=== PATIENT | female | born 1955 | race Caucasian/White ===

== ENCOUNTER 2024-12-06 11:15 | Emergency (ER) | payer MEDICARE, SELFPAY ==
[2024-12-06 11:29] VITALS: BP 170/75; PULSE 65; RESP 16; TEMP 36.8; O2SAT 99; BMI 27.3
--- NOTE | 2024-12-06 11:34 | DI.RAD.S_ITS ---
PROCEDURE: XR KNEE RT 3V INDICATIONS: pain x 5 weeks, swelling TECHNIQUE: 3 views of the knee were acquired. COMPARISON: None. FINDINGS: Bones: No fractures or dislocations. No suspicious bony lesions. Tricompartment degenerative change with [id number] appearance at the patellofemoral joint. There are lateral greater than medial osteophytes. Soft tissues: No joint effusion. No suspicious soft tissue calcifications. IMPRESSION: No acute bony abnormality or significant effusion. Degenerative arthritis, severe in the patellofemoral compartment. Dictated by: Cory Deleon M.D. on 12/06/2024 at 12:17 Approved by: Cory Deleon M.D. on 12/06/2024 at 12:18
--- NOTE | 2024-12-06 12:11 | ED_ITS ---
HPI - Extremity Injury (Lower) <AXEL Pritchett - Last Filed: 12/06/24 12:31> General Chief Complaint: Extremity Injury, Lower Stated Complaint: Right knee pain Time Seen by Provider: 12/06/24 12:03 Source: patient Mode of arrival: Ambulatory History of Present Illness HPI Narrative: 68-year-old female, never smoker, presents to the emergency department with right knee pain x5 weeks. Patient states that she was kneeling on a cushion when she felt a pop in her knee and has had swelling and pain waxing and waning ever since. Home treatment has included RICE. 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 Patient is concerned because they right calf and ankle are swollen and seems to be getting worse. No history of blood clots, cancer, recent prolonged sitting, etc.. Related Data Allergies Allergy/AdvReac Type Severity Reaction Status Date / Time No Known Drug Allergies Allergy Verified 12/06/24 11:29 Review of Systems <AXEL Pritchett - Last Filed: 12/06/24 12:31> Review of Systems Narrative: Narrative: See HPI. GENERAL: Denies chills, fatigue, fever, sweats. HEENT: Denies sinus pain, ear pain, sore throat, difficulty swallowing, dizziness. RESPIRATORY: Denies dyspnea, cough, wheezing, sputum. CARDIOVASCULAR: Denies chest pain, palpitations, edema. GASTROINTESTINAL: Denies nausea, vomiting, abdominal pain, diarrhea, consti pation. : Denies dysuria, frequency, incontinence, hematuria, urinary retention, flank pain. MSK: Denies weakness or bony pain. Endorses right knee pain and swelling. SKIN: Denies rash, skin lesions, or pruritis. NEUROLOGIC: Denies weakness, dizziness, headache, numbness, confusion. Patient History <AXEL Pritchett - Last Filed: 12/06/24 12:31> Social History Smoking Status: Never smoker Smoking Status: Never smoker Exam <AXEL Pritchett - Last Filed: 12/06/24 12:31> Narrative Exam Narrative: Exam Narrative: GENERAL: This is a well-nourished, well-developed patient, in no acute distress. HEAD: Atraumatic. Normocephalic. EYES: Pupils equal round and reactive. Extraocular motions intact. No scleral icterus, injection or drainage. ENT: Nose without bleeding, purulent drainage. Airway patent. NECK: Trachea midline. No JVD or lymphadenopathy. Nontender. RESPIRATORY: Normal respiratory rate and effort. MSK: Moves all extremities. Normal range of motion, no clubbing or edema. Neurovascularly intact. NEURO: A&O x 3. SKIN: Warm, dry, no rashes or lesions noted. KNEE: There is no swelling, bruising or asymmetry. There is no tenderness to general palpation. There is no joint line tenderness. There is no patellar tenderness. There is no popliteal fullness. Patella tracks normally. Range of motion is limited due to pain. Worsens with extreme flexion. Resistive strength for flexion and extension is intact. Gait is antalgic. The contralateral knee exam is unremarkable. Measurements of bilateral ankle and calves are equal. Initial Vital Signs Initial Vital Signs: Vital Signs Temperature 98.3 F 12/06/24 11:29 Pulse Rate 65 12/06/24 11:29 Respiratory Rate 16 12/06/24 11:29 Blood Pressure 170/75 H 12/06/24 11:29 Pulse Oximetry 99 12/06/24 11:29 Oxygen Delivery Method Room Air 12/06/24 11:29 Reviewed <Gideon Singh MD - Last Filed: 12/08/24 08:30> Initial Vital Signs Initial Vital Signs: Vital Signs Temperature 98.3 F 12/06/24 11:29 Pulse Rate 65 12/06/24 11:29 Respiratory Rate 16 12/06/24 11:29 Blood Pressure 170/75 H 12/06/24 11:29 Pulse Oximetry 99 12/06/24 11:29 Oxygen Delivery Method Room Air 12/06/24 11:29 Course <AXEL Pritchett - Last Filed: 12/06/24 12:31> Orders Ordered: ED Orders 12/06/24 11:34 XR knee RT 3V Stat Vital Signs Vital signs: Vital Signs - 8 hr 12/06/24 11:29 Temperature 98.3 F Pulse Rate 65 Respiratory Rate 16 Blood Pressure 170/75 H Pulse Oximetry 99 Oxygen Delivery Method Room Air <Gideon Singh MD - Last Filed: 12/08/24 08:30> Orders Ordered: ED Orders 12/06/24 11:34 XR knee RT 3V Stat Vital Signs Vital signs: Vital Signs - 8 hr 12/06/24 11:29 Temperature 98.3 F Pulse Rate 65 Respiratory Rate 16 Blood Pressure 170/75 H Pulse Oximetry 99 Oxygen Delivery Method Room Air MDM - Extremity Injury (Lower) <Chris AXEL Nieto - Last Filed: 12/06/24 12:31> Differential Diagnosis Differential diagnosis: Likely other (Knee sprain, Gayle's cyst) Imaging Data Extremity x-ray #1: Radiologist's Impression: [address] [address] XRay Report Signed Patient: Aliya Samson MR#: [id number] : 1955 Acct:[id number] Age/Sex: 68 / F Date of Service: 12/06/24 Loc: ED Accession Number: [id number] Procedure: XR knee RT 3V Ordering Provider: Gideon Singh MD PROCEDURE: XR KNEE RT 3V INDICATIONS: pain x 5 weeks, swelling TECHNIQUE: 3 views of the knee were acquired. COMPARISON: None. FINDINGS: Bones: No fractures or dislocations. No suspicious bony lesions. Tricompartment degenerative change with [id number] appearance at the patellofemoral joint. There are lateral greater than medial osteophytes. Soft tissues: No joint effusion. No suspicious soft tissue calcifications. IMPRESSION: No acute bony abnormality or significant effusion. Degenerative arthritis, severe in the patellofemoral compartment. Dictated by: Cory Deleon M.D. on 12/06/2024 at 12:17 Approved by: Cory Deleon M.D. on 12/06/2024 at 12:18 [facility] Narrative Medical decision making narrative: 68-year-old female with right knee pain. Assessment was encouraging and clinical findings did not reveal any red flag symptoms. X-ray results showed degenerative arthritis with no evidence of fracture or effusion. Wells score for DVT was -2. Will recommend continued supportive care to include Rest (modified activity), along with ice, compression wrap/splint-immobilize as directed and elevation above heart. Tylenol or Ibuprofen for discomfort. Instructed patient to follow up with family doctor if symptoms persist or worsen for possible MRI. Patient verbalized understanding and was agreeable to course of action. Discharge Plan Departure Patient Disposition: Home Clinical Impression: Acute knee pain Qualifiers: Laterality: right Qualified Code(s): M25.561 - Pain in right knee Instructions: DI for Knee Pain Activity Restrictions/Additional Instructions: *You have been diagnosed with right knee pain. Who is a pleasure meeting you and I am sorry you are experiencing this pain at this time. Your x-ray did not show any fracture or fluid buildup, but did reveal degenerative arthritis, which is pretty common. If at any point you develop numbness and tingling of the leg, intolerable pain, etc. please return to the emergency room immediately. Otherwise, please follow-up with your family doctor if symptoms persist as a MRI may be ordered. *What to do: *Please continue to take your regular medications as directed. [ ] New medication prescriptions sent to your pharmacy: [ ] [ ] New medication written as a paper prescription [x ] No new medications given *Please follow up with your primary care provider in 2-3 days, call for an appointment. Let them know you were seen in the Emergency Department and that we ask that you be seen in follow up. We will electronically transmit a record of today's note if your PCP is in our system *If you do not have a primary care provider please contact the [facility] Resource line at [phone]. They will ask some questions about your medical history and help get you set up with a doctor in the community. ? Return to ER if you should have any new, worsening or concerning symptoms, such as worsening pain, severe headache, confusion, chest pain, difficulty breathing, fever greater than 101 F, shaking chills, persistent vomiting to the point that you cannot drink fluids, or other new or worsening symptoms. Stand Alone Forms: Patient Portal/API/Survey ED Sign-out <Gdieon Singh MD - Last Filed: 12/08/24 08:30> [facility]: I was immediately available in the department for consultation. ?This documentation has been reviewed and I agree with assessment and plan. Supervised by Gideon Singh MD
[2024-12-06 12:30] VITALS: BP 126/65; PULSE 54; RESP 16; O2SAT 97
== END 2024-12-06 12:35 | disposition home or self-care (01) ==
PROVIDERS: Emergency Provider Registered Nurse
DX: M25.561 Pain in right knee (principal); M17.11 Unilateral primary osteoarthritis, right knee
CPT/HCPCS: 73562; 99281; 99283